=== PATIENT | male | born 1935 | race Hispanic/Latino ===

== ENCOUNTER 2021-01-05 21:51 | Inpatient (IN) | payer OTHER ==
[2021-01-05 23:04] LABS: Absolute Lymphocytes (CBC) 0.3 K/uL (0.7-4.9); Basophils % 0.4 % (0-1.3); Hematocrit 39.9 % (39.6-49.0); Lymphocytes % 3.1 % (15.3-44.8); MPV 8.8 fL (7.6-11.3); RBC Red Blood Cell Count 4.34 M/uL (4.33-5.43)
[2021-01-05 23:06] LABS: Protime INR 1.06
[2021-01-05 23:31] LABS: ALT/SGPT 19 U/L (12-78); AST/SGOT 15 U/L (15-37); Albumin 3.6 g/dL (3.4-5.0); Alkaline Phosphatase 69 U/L (45-117); BUN Blood Urea Nitrogen 21 mg/dL (7-18); Bicarbonate 25 mmol/L (21-32); Bilirubin Direct 0.2 mg/dL (0-0.2); Bilirubin Total 0.6 mg/dL (0.2-1.0); Glucose Level 142 mg/dL (74-106); NT PRO-BNP 907 pg/mL (<450); Protein, Total 6.9 g/dL (6.4-8.2); Sodium Level 143 mmol/L (136-145); Thyroid Stimulating Hormone 0.632 uIU/mL (0.360-3.740); Troponin (Emerg Dept Use Only) < 0.02 ng/mL (0.0-0.045)
[2021-01-06 00:12] LABS: Urine Blood 2+ (Negative); Urine Glucose Negative (Negative); Urine Protein Negative (Negative); Urine Specific Gravity 1.025 (1.005-1.030)
[2021-01-06 00:25] LABS: Barbiturates NEGATIVE (NEGATIVE); Benzodiazepines NEGATIVE (NEGATIVE); Cocaine NEGATIVE (NEGATIVE); METHAMPHETAM NEGATIVE (NEGATIVE); Methadone NEGATIVE (NEGATIVE); Opiates NEGATIVE (NEGATIVE); Phencyclidine NEGATIVE (NEGATIVE); THC Cannibis NEGATIVE (NEGATIVE)
[2021-01-06] MEDS ORDERED: NA CHLORIDE 0.9% 500 ML ONE ×2 (00:52→04:30)
--- NOTE | 2021-01-06 02:43 | EDPHYS ---
Physician Documentation [facility] Name: Rosalinda Mason Age: 85 yrs Sex: Male : 1935 Arrival Date: 01/05/2021 Time: 21:57 Bed 18 Private MD: ED Physician Norberto Rivera HPI: 01/05 22:20 This 85 yrs old Male presents to ER via EMS with complaints of Altered mental mh7 status. 22:20 The patient presents with confusion. Onset: The symptoms/episode began/occurred at an mh7 unknown time. Possible causes: unknown. 22:58 Associated signs and symptoms: Pertinent positives: abdominal pain, confusion, mh7 weakness, Generalized, Pertinent negatives: chest pain, diarrhea, nausea, vomiting. Current symptoms: In the emergency department the patient's symptoms are unchanged from the initial presentation. Patient's baseline: Unknown. According to EMS patient family called stating that he has had some confusion and generalized weakness for unspecified period of time. In the ED patient is awake alert oriented to self and place. He denies any complaints.. Historical: - Allergies: 22:03 Morphine; ld1 - Home Meds: 22:03 Crestor 5 mg Oral tab 1 tab once daily [Active]; ld1 - PMHx: 22:03 Hernia; ld1 - Immunization history:: Adult Immunizations up to date. - Social history:: Smoking status: Patient denies any tobacco usage or history of. ROS: 22:58 Constitutional: Negative for fever, chills, and weight loss, Eyes: Negative for injury, mh7 pain, redness, and discharge, ENT: Negative for injury, pain, and discharge, Neck: Negative for injury, pain, and swelling, Cardiovascular: Negative for chest pain, palpitations, and edema, Respiratory: Negative for shortness of breath, cough, wheezing, and pleuritic chest pain, Back: Negative for injury and pain, : Negative for injury, bleeding, discharge, and swelling, MS/Extremity: Negative for injury and deformity, Skin: Negative for injury, rash, and discoloration, Psych: Negative for depression, anxiety, suicide ideation, homicidal ideation, and hallucinations, Allergy/Immunology: Negative for hives, rash, and allergies, Endocrine: Negative for neck swelling, polydipsia, polyuria, polyphagia, and marked weight changes, Hematologic/Lymphatic: Negative for swollen nodes, abnormal bleeding, and unusual bruising. Exam: 22:58 Constitutional: This is a well developed, well nourished patient who is awake, alert, mh7 and in no acute distress. Head/Face: Normocephalic, atraumatic. Eyes: Pupils equal round and reactive to light, extra-ocular motions intact. Lids and lashes normal. Conjunctiva and sclera are non-icteric and not injected. Cornea within normal limits. Periorbital areas with no swelling, redness, or edema. Neck: Trachea midline, no thyromegaly or masses palpated, and no cervical lymphadenopathy. Supple, full range of motion without nuchal rigidity, or vertebral point tenderness. No Meningismus. Chest/axilla: Normal chest wall appearance and motion. Nontender with no deformity. No lesions are appreciated. 22:58 Respiratory: Lungs have equal breath sounds bilaterally, clear to auscultation and percussion. No rales, rhonchi or wheezes noted. No increased work of breathing, no retractions or nasal flaring. Back: No spinal tenderness. No costovertebral tenderness. Full range of motion. Skin: Warm, dry with normal turgor. Normal color with no rashes, no lesions, and no evidence of cellulitis. MS/ Extremity: Pulses equal, no cyanosis. Neurovascular intact. Full, normal range of motion. 22:58 Cardiovascular: Rate: tachycardic, Rhythm: regular, Pulses: no pulse deficits are appreciated, Heart sounds: normal, normal S1and S2, Edema: is not appreciated, JVD: is not appreciated. 22:58 Abdomen/GI: Inspection: obese scar(s), are noted in the epigastric area and umbilical area, Bowel sounds: normal, in all quadrants, Palpation: mild abdominal tenderness, in all quadrants, mass, is not appreciated, rebound tenderness, is not appreciated, voluntary guarding, is not appreciated, involuntary guarding, is not appreciated, no appreciated organomegaly, Rectal exam: the exam is deferred, because of patient request, Indicators: McBurney's point is not tender, Vines's sign is negative, Rovsing's sign is negative, Obturator sign is negative, Psoas sign is negative, Liver: no appreciated palpable abnormalities. 22:58 Neuro: Orientation: to person, place, Mentation: able to follow commands, Memory: mh7 immediate memory is intact, remote memory is impaired, recent memory is impaired, Cranial nerves: grossly normal, Cerebellar function: is grossly normal, Motor: is normal, Sensation: is normal, Gait: not tested. seizure activity, is not displayed by the patient, Abnormal movements: there are no abnormal movements. Vital Signs: 22:00 BP 122 / 64; Pulse 114; Resp 17; Temp 98.6(O); Pulse Ox 98% on R/A; Weight 95.25 kg; ld1 Height 5 ft. 11 in. (180.34 cm); Pain 0/10; 22:00 BP 128 / 73; Pulse 108; Resp 18; Pulse Ox 98% on R/A; cc4 22:15 BP 126 / 74; Pulse 107; Resp 18; Pulse Ox 99% on R/A; cc4 22:30 BP 132 / 66; Pulse 114; Resp 20; Pulse Ox 100% on R/A; cc4 22:45 BP 123 / 78; Pulse 100; Resp 18; Pulse Ox 98% on R/A; cc4 01/06 01:58 BP 122 / 98; Pulse 108; Resp 18; Pulse Ox 97% on R/A; cc4 02:00 BP 136 / 60; Pulse 83; Resp 18; Pulse Ox 98% on R/A; cc4 02:15 BP 152 / 98; Pulse 99; Resp 18; Pulse Ox 100% on R/A; cc4 02:30 BP 118 / 56; Pulse 106; Resp 20; Pulse Ox 99% on R/A; cc4 02:45 BP 123 / 64; Pulse 112; Resp 18 S; Pulse Ox 99% on R/A; cc4 03:00 BP 113 / 81; Pulse 107; Resp 20; Pulse Ox 99% on R/A; cc4 04:00 BP 114 / 82; Pulse 109; Resp 18; Pulse Ox 99% on R/A; cc4 04:30 BP 124 / 63; Pulse 108; Resp 20; Temp 98; Pulse Ox 98% on R/A; cc4 01/05 22:00 Body Mass Index 29.29 (95.25 kg, 180.34 cm) ld1 MDM: 02:36 Differential Diagnosis: CVA, electrolyte abnormality, alcohol intoxication, mh7 hypoglycemia, intracranial bleed, overdose, pneumonia, seizure, TIA, UTI, volume depletion. Data reviewed: vital signs, nurses notes, EMS record, old medical records, lab test result(s), cardiac enzymes, CBC, drug level(s), acetaminophen, alcohol, salicylate, electrolytes, Flu: negative urinalysis, Covid negative, EKG, radiologic studies, CT scan, plain films. Data interpreted: Pulse oximetry: on room air is 98 %. Interpretation: normal. Counseling: I had a detailed discussion with the patient and/or guardian regarding: the historical points, exam findings, and any diagnostic results supporting the discharge/admit diagnosis, lab results, radiology results, the need for further work-up and treatment in the hospital. Response to treatment: the patient's symptoms have mildly improved after treatment. ED course: No acute distress, vital signs stable, no focal neurological deficits. Responds to most questions appropriately. Discussed with patient's and granddaughter who indicate the patient has had some cognitive issues over the last few years but seemed somewhat more confused yesterday. He has not followed up with his PCP over the last few years so it is unknown if he has any other medical conditions. Plan to admit to his PCP Dr. Jacques for further evaluation and care.. 02:42 Patient medically screened. [facility] 01/05 22:30 Order name: Basic Metabolic Panel [facility] 01/05 22:30 Order name: CBC with Diff [facility] 01/05 22:30 Order name: LFT's [facility] 01/05 22:30 Order name: Magnesium; Complete Time: 23:38 [facility] 01/05 22:30 Order name: NT PRO-BNP; Complete Time: 23:38 [facility] 01/05 22:30 Order name: PT-INR; Complete Time: 23:28 [facility] 01/05 22:30 Order name: Troponin (emerg Dept Use Only); Complete Time: 23:38 [facility] 01/05 22:30 Order name: AMMONIA; Complete Time: 23:28 [facility] 01/05 22:30 Order name: UDS; Complete Time: 00:26 [facility] 01/05 22:30 Order name: ETOH Level; Complete Time: 23:38 [facility] 01/05 22:30 Order name: Acetaminophen; Complete Time: 23:38 [facility] 01/05 22:30 Order name: Salicylate; Complete Time: 23:28 [facility] 01/05 22:30 Order name: TSH; Complete Time: 23:38 [facility] 01/05 22:31 Order name: Basic Metabolic Panel; Complete Time: 23:38 [facility] 01/05 22:31 Order name: CBC with Automated Diff; Complete Time: 23:28 [facility] 01/05 22:31 Order name: Liver (Hepatic) Function; Complete Time: 23:38 [facility] 01/05 22:32 Order name: Influenza Screen (a \T\ B); Complete Time: 00:26 [facility] 01/05 22:33 Order name: Blood Culture Adult (2) [facility] 01/05 22:33 Order name: Lactate; Complete Time: 00:05 [facility] 01/05 23:44 Order name: SARS-COV-2 RT PCR; Complete Time: 00:56 [facility] 01/06 00:11 Order name: Urine Dipstick-Ancillary; Complete Time: 00:26 [facility] 01/06 02:56 Order name: Comprehensive Metabolic Panel [facility] 01/06 02:56 Order name: Troponin I [facility] 01/06 02:56 Order name: CBC with Automated Diff [facility] 01/06 04:35 Order name: CBC with Automated Diff [facility] 01/05 22:30 Order name: XRAY Chest (1 view) [facility] 01/05 22:30 Order name: EKG; Complete Time: 22:31 [facility] 01/05 22:30 Order name: Cardiac monitoring; Complete Time: 00:45 [facility] 01/05 22:30 Order name: EKG - Nurse/Tech; Complete Time: 00:45 [facility] 01/05 22:30 Order name: IV Saline Lock; Complete Time: 00:45 [facility] 01/05 22:30 Order name: Labs collected and sent; Complete Time: 00:45 [facility] 01/05 22:30 Order name: O2 Per Protocol [facility] 01/05 22:30 Order name: O2 Sat Monitoring; Complete Time: 00:46 [facility] 01/05 22:30 Order name: Urine Dipstick-Ancillary (obtain specimen); Complete Time: 00:47 [facility] 01/05 22:32 Order name: CT Head Brain wo Cont [facility] 01/05 23:57 Order name: CT Abd/Pelvis - IV Contrast Only [facility] 01/05 23:57 Order name: CT Chest For PE Angio [facility] 01/06 02:56 Order name: CONS Physician Consult; Complete Time: 04:09 [facility] 01/06 02:56 Order name: 60g Consistent Carbohydrate (ADA 1800/1999); Complete Time: 04:09 [facility] 01/06 04:51 Order name: Comprehensive Metabolic Panel [facility] 01/06 04:51 Order name: Troponin (Emerg Dept Use Only) EDMS Administered Medications: 00:25 Drug: NS 0.9% 500 ml Route: IV; Rate: bolus; Site: right forearm; cc4 05:42 Follow up: IV Status: Completed infusion; IV Intake: 500ml cc4 03:55 Drug: Rocephin (cefTRIAXone) 1 grams Route: IV; Rate: per protocol; Site: right wrist; cc4 04:50 Follow up: Response: No adverse reaction cc4 03:55 Drug: Flagyl (metroNIDAZOLE) 500 mg Volume: 100 ml; Route: IVPB; Rate: 200 ml/hr; cc4 Infused Over: 30 mins; Site: right forearm; 05:40 Follow up: IV Status: Completed infusion; IV Intake: 100ml cc4 03:55 Drug: NS 0.9% 500 ml Route: IV; Rate: bolus; Site: right forearm; cc4 04:50 Follow up: IV Status: Infusion continued; IV Intake: 100ml cc4 03:55 Drug: Aspirin Chewable Tablet 162 mg Route: PO; cc4 04:50 Follow up: Urine output 600 ml; Response: No adverse reaction cc4 Disposition Summary: 01/06/21 02:42 Hospitalization Ordered Hospitalization Status: Inpatient Admission [facility] Provider: Mabel Jacques [facility] Condition: Stable [facility] Problem: an ongoing problem [facility] Symptoms: have improved [facility] Bed/Room Type: Standard [facility] Room Assignment: 203(01/06/21 03:19) cg Diagnosis - Altered Mental Status mh7 - Unspecified atrial fibrillation mh7 - Colitis [facility] Forms: - Medication Reconciliation Form [facility] - SBAR form [facility] Signatures: Dispatcher [employer] Kalie Lott RN RN Norberto Pinto MD MD 7 Radha Lozano RN RN ld1 Ama Lazar RN RN cc4 Corrections: (The following items were deleted from the chart) 01/05 23:44 22:33 CORONAVIRUS+.BRZ ordered. EDMS EDMS 01/06 03:19 02:42 mh7
--- NOTE | 2021-01-06 02:43 | ER ---
Nurse's Notes [facility] Name: Rosalinda Mason Age: 85 yrs Sex: Male : 1935 Arrival Date: 01/05/2021 Time: 21:57 Bed 18 Private MD: Diagnosis: Altered Mental Status;Unspecified atrial fibrillation;Colitis Presentation: 01/05 22:00 Chief complaint: EMS states: toned out for generalized weakness and altered mental ld1 status. Family states lately he has been forgetful. Coronavirus screen: At this time, the client does not indicate any symptoms associated with coronavirus-19. Ebola Screen: No symptoms or risks identified at this time. Initial Sepsis Screen: Does the patient meet any 2 criteria? Altered Mental Status. HR > 90 bpm. Does the patient have a suspected source of infection? No. Patient's initial sepsis screen is negative. Risk Assessment: Do you want to hurt yourself or someone else? Patient reports no desire to harm self or others. Onset of symptoms was January 05, 2021. 22:00 Method Of Arrival: EMS: [facility] ld1 22:00 Acuity: MALIKA 3 ld1 Triage Assessment: 22:04 General: Appears in no apparent distress. comfortable, Behavior is calm, cooperative, ld1 appropriate for age. Pain: Denies pain. EENT: No signs and/or symptoms were reported regarding the EENT system. Neuro: Level of Consciousness is awake, alert, obeys commands, Oriented to person, place. Cardiovascular: Capillary refill < 3 seconds Patient's skin is warm and dry. Rhythm is sinus tachycardia. Respiratory: Airway is patent Respiratory effort is even, unlabored, Respiratory pattern is regular, symmetrical. GI: Abdomen is round distended, Abdominal hernia present to right upper and lower abdomen. Abd is soft Abdomen is tender to palpation X 4 quads. : No signs and/or symptoms were reported regarding the genitourinary system. Derm: No signs and/or symptoms reported regarding the dermatologic system. Musculoskeletal: No signs and/or symptoms reported regarding the musculoskeletal system. Historical: - Allergies: 22:03 Morphine; ld1 - Home Meds: 22:03 Crestor 5 mg Oral tab 1 tab once daily [Active]; ld1 - PMHx: 22:03 Hernia; ld1 - Immunization history:: Adult Immunizations up to date. - Social history:: Smoking status: Patient denies any tobacco usage or history of. Screenin:00 Abuse screen: Denies threats or abuse. Nutritional screening: No deficits noted. cc4 Tuberculosis screening: No symptoms or risk factors identified. Fall Risk Mental Status- Overestimates/Forgets Limitations (15 pts.). Assessment: 22:00 General: Appears in no apparent distress. Appears disoriented.. Behavior is restless, cc4 Disoriented; following commands.. General: voices no complaints.. Neuro: Level of Consciousness is awake, obeys commands, confused, drowsy;. Oriented to person, place, Recorder Hel[employer] are equal bilaterally Moves all extremities. Speech clear. Facial symmetry appears normal, Pupils are PERRLA, Intact. Cardiovascular: Heart tones S1 S2 Capillary refill < 3 seconds Rhythm is atrial fibrillation. Respiratory: No deficits noted. Airway is patent Breath sounds are clear bilaterally. GI: Abdomen is obese, Bowel sounds present X 4 quads. Abd is soft and non tender Whitney Patricio NP in to assess reporting hernia reducible \T\ reports transferring services to Dr. Rivera. Large right inguinal hernia noted of abdomen;. : Urine is Incontinent of foul smelling rust colored urine with wet pants removed with some assistance. EENT: No deficits noted. Eyes clear. Nares are clear Oral mucosa is dry. 22:00 Derm: No deficits noted. Skin is intact. Musculoskeletal: Capillary refill < 3 seconds, cc4 Range of motion: intact in all extremities. 22:02 Reassessment: # 20 g angiocath inserted right forearm \T\ converted to saline lock x 2 cc4 attempts with blood drawn \T\ sent to lab. 22:55 Reassessment: To CT via stretcher. cc4 01/06 01:58 Reassessment: Using urinal to void with assisstance with 200 ml cassia colored urine cc4 noted. 01:58 Reassessment: Patient appears in no apparent distress at this time. Linen wet; awakened cc4 from sleep with linen changed \T\ skin cleaned with bath wipes with brief applied; NAD; essentially no change in condition. 04:00 Reassessment: Awake/alert; remains disoriented; follows commands; voices no complaints; cc4 holding baby ASA in mouth; feed cup of applesauce with no difficulty swallowing \T\ swallowed ASA; IVPB Flagyl infusing with no difficulty right FA with no s/sx's of infiltration; NAD. 04:50 Reassessment: Report telephoned to DARIAN Albarran \T\ trajnsferred to Rm # [phone] via stretcher; cc4 IV NS patent/infusing right FA with no s/sx's of infection/infiltration noted of site; NAD. Vital Signs: 01/05 22:00 BP 122 / 64; Pulse 114; Resp 17; Temp 98.6(O); Pulse Ox 98% on R/A; Weight 95.25 kg; ld1 Height 5 ft. 11 in. (180.34 cm); Pain 0/10; 22:00 BP 128 / 73; Pulse 108; Resp 18; Pulse Ox 98% on R/A; cc4 22:15 BP 126 / 74; Pulse 107; Resp 18; Pulse Ox 99% on R/A; cc4 22:30 BP 132 / 66; Pulse 114; Resp 20; Pulse Ox 100% on R/A; cc4 22:45 BP 123 / 78; Pulse 100; Resp 18; Pulse Ox 98% on R/A; cc4 01/06 01:58 BP 122 / 98; Pulse 108; Resp 18; Pulse Ox 97% on R/A; cc4 02:00 BP 136 / 60; Pulse 83; Resp 18; Pulse Ox 98% on R/A; cc4 02:15 BP 152 / 98; Pulse 99; Resp 18; Pulse Ox 100% on R/A; cc4 02:30 BP 118 / 56; Pulse 106; Resp 20; Pulse Ox 99% on R/A; cc4 02:45 BP 123 / 64; Pulse 112; Resp 18 S; Pulse Ox 99% on R/A; cc4 03:00 BP 113 / 81; Pulse 107; Resp 20; Pulse Ox 99% on R/A; cc4 04:00 BP 114 / 82; Pulse 109; Resp 18; Pulse Ox 99% on R/A; cc4 04:30 BP 124 / 63; Pulse 108; Resp 20; Temp 98; Pulse Ox 98% on R/A; cc4 01/05 22:00 Body Mass Index 29.29 (95.25 kg, 180.34 cm) ld1 ED Course: 01/05 21:57 Patient arrived in ED. ld1 22:00 Patient has correct armband on for positive identification. environmental monitoring technician on. Pulse cc4 ox on. NIBP on. Notified ED physician of other arrival. 22:03 Triage completed. ld1 22:04 Arm band placed on right wrist. ld1 22:20 Norberto Rivera MD is Attending Physician. mh7 22:53 XRAY Chest (1 view) In Process Unspecified. EDMS 23:05 CT Head Brain wo Cont In Process Unspecified. EDMS 23:36 Influenza Screen (a \T\ B) Sent. oe 23:36 Lactate Sent. oe 23:36 Blood Culture Adult (2) Sent. oe 01/06 00:24 Ama Lazar, RN is Primary Nurse. cc4 00:43 CT Chest For PE Angio Sent. cc4 00:43 CT Abd/Pelvis - IV Contrast Only Sent. cc4 00:44 Blood Culture Adult (2) Sent. cc4 00:45 LFT's Sent. cc4 00:45 CBC with Diff Sent. cc4 00:45 Basic Metabolic Panel Sent. cc4 01:03 CT Abd/Pelvis - IV Contrast Only In Process Unspecified. EDMS 01:03 CT Chest For PE Angio In Process Unspecified. EDMS 02:40 Mabel Jacques MD is Hospitalizing Provider. 7 04:00 No provider procedures requiring assistance completed. cc4 04:08 CBC with Automated Diff Sent. cc4 04:08 CBC with Automated Diff Sent. cc4 04:09 Troponin I Sent. cc4 04:09 Troponin I Sent. cc4 04:09 Comprehensive Metabolic Panel Sent. cc4 04:09 Comprehensive Metabolic Panel Sent. cc4 04:09 Troponin I Sent. cc4 04:50 IV is patent, is intact, with fluids infusing freely, cc4 Administered Medications: 00:25 Drug: NS 0.9% 500 ml Route: IV; Rate: bolus; Site: right forearm; cc4 05:42 Follow up: IV Status: Completed infusion; IV Intake: 500ml cc4 03:55 Drug: Rocephin (cefTRIAXone) 1 grams Route: IV; Rate: per protocol; Site: right wrist; cc4 04:50 Follow up: Response: No adverse reaction cc4 03:55 Drug: Flagyl (metroNIDAZOLE) 500 mg Volume: 100 ml; Route: IVPB; Rate: 200 ml/hr; cc4 Infused Over: 30 mins; Site: right forearm; 05:40 Follow up: IV Status: Completed infusion; IV Intake: 100ml cc4 03:55 Drug: NS 0.9% 500 ml Route: IV; Rate: bolus; Site: right forearm; cc4 04:50 Follow up: IV Status: Infusion continued; IV Intake: 100ml cc4 03:55 Drug: Aspirin Chewable Tablet 162 mg Route: PO; cc4 04:50 Follow up: Urine output 600 ml; Response: No adverse reaction cc4 Intake: 04:50 IV: 100ml; Total: 100ml. cc4 05:40 IV: 100ml; Total: 200ml. cc4 05:42 IV: 500ml; Total: 700ml. cc4 Output: 04:50 Urine: 600ml; Total: 600ml. cc4 Outcome: 02:42 Decision to Hospitalize by Provider. [facility] 04:00 Condition: stable cc4 04:50 Admitted to Med/surg accompanied by nurse, via stretcher, room 403, Report called to cc4 Avis De Jesus RN 04:50 Instructed on the need for admit. 05:17 Patient left the ED. cc4 Signatures: Dispatcher [employer] EDMS Ubaldo Muro Maurice, MD MD 7 Radha Lozano, DARIAN RN 1 Ama Lazar RN RN cc4 Corrections: (The following items were deleted from the chart) 01/05 23:44 23:36 CORONAVIRUS+MR.LAB.BRZ drawn and sent. mic ADAMS 01/06 04:17 04:14 BP 128 / 73; Pulse 108bpm; Resp 18bpm; Pulse Ox 98% RA; cc4 cc4
[2021-01-06] MEDS ORDERED: ACETAMINOPHEN 500 MG TAB PO PRN (02:48)
[2021-01-06] MEDS ORDERED: ONDANSETRON 4 MG/2 ML VIAL IV PRN (02:48)
[2021-01-06] MEDS ORDERED: ALBUTEROL 2.5 MG/3 ML NEB SOL NEB PRN (02:48)
[2021-01-06] MEDS ORDERED: ASPIRIN EC 81 MG TAB PO ONE (04:29)
[2021-01-06] MEDS ORDERED: METRONIDAZOLE 500mg IVPB 500 MG/100 ML BAG IV ONE (04:30)
[2021-01-06] MEDS ORDERED: CEFTRIAXONE 1000 MG/VIAL ONE (04:30)
[2021-01-06 04:34] LABS: Absolute Lymphocytes (CBC) 0.7 K/uL (0.7-4.9); Basophils % 0.3 % (0-1.3); Hematocrit 38.6 % (39.6-49.0); Lymphocytes % 4.7 % (15.3-44.8); MPV 8.4 fL (7.6-11.3); RBC Red Blood Cell Count 4.26 M/uL (4.33-5.43)
[2021-01-06 04:51] LABS: ALT/SGPT 16 U/L (12-78); AST/SGOT 15 U/L (15-37); Albumin 3.6 g/dL (3.4-5.0); Alkaline Phosphatase 62 U/L (45-117); BUN Blood Urea Nitrogen 18 mg/dL (7-18); Bicarbonate 23 mmol/L (21-32); Bilirubin Total 1.1 mg/dL (0.2-1.0); Glucose Level 124 mg/dL (74-106); Potassium 3.9 mmol/L (3.5-5.1); Protein, Total 6.8 g/dL (6.4-8.2); Sodium Level 142 mmol/L (136-145); Troponin (Emerg Dept Use Only) < 0.02 ng/mL (0.0-0.045)
[2021-01-06] MEDS: METRONIDAZOLE 500mg IVPB 500 MG/100 ML BAG IV SCH ×3 (05:55→18:34)
[2021-01-06] MEDS: NA CHLORIDE 0.9% 1,000 ML IV SCH ×3 (05:55→23:00)
[2021-01-06] MEDS ORDERED: NA CHLORIDE 0.9% 1,000 ML ONE (06:19)
[2021-01-06] MEDS: CEFTRIAXONE 1 GM/NS 50 ML 1 GM/50 ML BAG IV SCH ×2 (09:56→20:15)
--- NOTE | 2021-01-06 10:42 | RAD REPORT ---
EXAM DESCRIPTION: Mita Single View01/05/2021 10:53 pm CLINICAL HISTORY: Chest pain COMPARISON: 2016 FINDINGS: The lungs appear clear of acute infiltrate. The heart is mildly enlarged IMPRESSION: No acute abnormalities displayed
--- NOTE | 2021-01-06 18:36 | RAD REPORT ---
EXAM DESCRIPTION: CT - Head Brain Wo Cont - 01/06/2021 6:26 am CLINICAL HISTORY: 85 years, Male, MENTAL STATUS CHANGE COMPARISON: None. FINDINGS: Multiple transaxial tomograms of the brain were obtained from the base of the skull to the vertex without contrast. 2-D multiplanar reformats and the coronal and sagittal plane were performed and reviewed. This exam was performed according to our departmental dose-optimization protocol, which includes auto mated exposure control, adjustment of the mA and/or kV according to patient size and/or use of iterat delores reconstruction technique. Brain parenchyma demonstrate prominence of the sulci and gyri are corresponding to brain atrophy. The re is minimal periventricular white matter changes of microvascular ischemia. There is no midline neil ft and/or mass effect. There is no evidence for acute intracranial hemorrhage. Minimal bilateral basa l ganglia calcifications. Vascular calcifications at the cavernous sinus Lateral ventricles and ciste rns displace normal appearance. No intra or extra axial fluid collections were seen. The calvarium is intact with no evidence for fracture. The visualized portions of the paranasal sinuses and orbits demonstrate to be clear. IMPRESSION: BRAIN ATROPHY WITH PERIVENTRICULAR MATTER CHANGES OF MICROVASCULAR ISCHEMIA. NO ACUTE INTRACRANIAL HEMORRHAGE. Electronically signed by: Odilon Mondragon MD 01/05/2021 11:41 PM CDT Due to temporary technical issues with the PACS/Fluency reporting system, reports are being signed by the in house radiologists without review as a courtesy to insure prompt reporting. The interpreting radiologist is fully responsible for the content of the report.
--- NOTE | 2021-01-06 18:58 | RAD REPORT ---
EXAM DESCRIPTION: CT - Abdomen Pelvis W Contrast - 01/06/2021 6:25 am COMPARISON: None. CLINICAL HISTORY: [facility] MAIN palpitations TECHNIQUE: CT images through the chest with IV contrast using the pulmonary embolus protocol. Multip lanar reformats. MIPS reformats are provided. Automated exposure control was utilized on this exami [facility] as a dose lowering technique. FINDINGS: Pulmonary arteries and vascular: Diagnostic quality bolus. No filling defects. Mild athero sclerosis. Heart and mediastinum: Heart size is normal. No lymphadenopathy. Thyroid gland: Visualized portions are normal. Lungs: Clear. Airways: No filling defects. No bronchiectasis. Pleura: No pneumothorax. No significant pleural effusion. Musculoskeletal and soft tissues: Within normal limits for age. EXAM DESCRIPTION: CT Abdomen and Pelvis COMPARISON: None. CLINICAL HISTORY: [facility] MAIN ABD PAIN TECHNIQUE: CT of the abdomen and pelvis was acquired with IV contrast material. Coronal and sagitt al reconstructions were obtained. Automated exposure control was utilized on this examination as a dose lowering technique. FINDINGS: Liver: Normal. Gallbladder and biliary: Normal gallbladder. Unremarkable biliary tree. Pancreas: Normal. Spleen: Normal. Adrenal glands: Normal adrenal glands. Kidneys: Normal kidneys Stomach and Small Bowel: Normal stomach. There are multiple loops of small bowel located within multi ple ventral hernias. Urinary bladder: Normal. Prostate/Male Urogenital: Normal. Colon and Appendix: Severe sigmoid diverticulosis. A small portion of colon is located within a small left ventral hernia. There is severe wall thickening of the transverse colon with adjacent fat stran ding. No evidence of appendicitis. Retroperitoneum and lymph nodes: Normal. Vascular: Mild atherosclerosis. Peritoneal cavity: No ascites or free air. Musculoskeletal and soft tissues: Multiple bowel containing ventral hernias are present. A collapsed left ventral hernia mesh is present. The right ventral hernia sac measures 19.6 cm. No aggressive bon e lesions. No compression fracture. IMPRESSION: No evidence of pulmonary embolus or other acute chest process. ABDOMEN/PELVIS IMPRESSION: 1. Severe focal infectious or inflammatory colitis of the transverse colon. Neoplasm is not excluded. 2. Severe sigmoid diverticulosis. 3. Multiple large ventral bowel containing hernias. Electronically signed by: Terrence Bueno MD 01/06/2021 1:49 AM CDT Due to temporary technical issues with the PACS/Fluency reporting system, reports are being signed by the in house radiologists without review as a courtesy to insure prompt reporting. The interpreting radiologist is fully responsible for the content of the report.
--- NOTE | 2021-01-06 19:00 | RAD REPORT ---
EXAM DESCRIPTION: CT - Chest For Pe Angio - 01/06/2021 6:24 am COMPARISON: None. CLINICAL HISTORY: [facility] MAIN palpitations TECHNIQUE: CT images through the chest with IV contrast using the pulmonary embolus protocol. Multip lanar reformats. MIPS reformats are provided. Automated exposure control was utilized on this exami [facility] as a dose lowering technique. FINDINGS: Pulmonary arteries and vascular: Diagnostic quality bolus. No filling defects. Mild athero sclerosis. Heart and mediastinum: Heart size is normal. No lymphadenopathy. Thyroid gland: Visualized portions are normal. Lungs: Clear. Airways: No filling defects. No bronchiectasis. Pleura: No pneumothorax. No significant pleural effusion. Musculoskeletal and soft tissues: Within normal limits for age. IMPRESSION: CT Abdomen and Pelvis COMPARISON: None. CLINICAL HISTORY: [facility] MAIN ABD PAIN TECHNIQUE: CT of the abdomen and pelvis was acquired with IV contrast material. Coronal and sagitt al reconstructions were obtained. Automated exposure control was utilized on this examination as a dose lowering technique. FINDINGS: Liver: Normal. Gallbladder and biliary: Normal gallbladder. Unremarkable biliary tree. Pancreas: Normal. Spleen: Normal. Adrenal glands: Normal adrenal glands. Kidneys: Normal kidneys Stomach and Small Bowel: Normal stomach. There are multiple loops of small bowel located within multi ple ventral hernias. Urinary bladder: Normal. Prostate/Male Urogenital: Normal. Colon and Appendix: Severe sigmoid diverticulosis. A small portion of colon is located within a small left ventral hernia. There is severe wall thickening of the transverse colon with adjacent fat stran ding. No evidence of appendicitis. Retroperitoneum and lymph nodes: Normal. Vascular: Mild atherosclerosis. Peritoneal cavity: No ascites or free air. Musculoskeletal and soft tissues: Multiple bowel containing ventral hernias are present. A collapsed left ventral hernia mesh is present. The right ventral hernia sac measures 19.6 cm. No aggressive bon e lesions. No compression fracture. IMPRESSION: CHEST IMPRESSION: No evidence of pulmonary embolus or other acute chest process. ABDOMEN/PELVIS IMPRESSION: 1. Severe focal infectious or inflammatory colitis of the transverse colon. Neoplasm is not excluded. 2. Severe sigmoid diverticulosis. 3. Multiple large ventral bowel containing hernias. Electronically signed by: Terrence Bueno MD 01/06/2021 1:49 AM CDT Due to temporary technical issues with the PACS/Fluency reporting system, reports are being signed by the in house radiologists without review as a courtesy to insure prompt reporting. The interpreting radiologist is fully responsible for the content of the report.
[2021-01-06] MEDS: ENOXAPARIN 40 MG/0.4 ML SQ SCH (20:15)
[2021-01-07] MEDS: METRONIDAZOLE 500mg IVPB 500 MG/100 ML BAG IV SCH ×5 (00:12→23:58)
[2021-01-07 06:13] LABS: Basophils % 0.4 % (0-1.3); Hematocrit 33.8 % (39.6-49.0); Lymphocytes % 9.6 % (15.3-44.8); MPV 8.2 fL (7.6-11.3); RBC Red Blood Cell Count 3.69 M/uL (4.33-5.43)
[2021-01-07 06:28] LABS: ALT/SGPT 13 U/L (12-78); AST/SGOT 28 U/L (15-37); Albumin 2.7 g/dL (3.4-5.0); Alkaline Phosphatase 50 U/L (45-117); BUN Blood Urea Nitrogen 14 mg/dL (7-18); Bicarbonate 25 mmol/L (21-32); Bilirubin Total 0.9 mg/dL (0.2-1.0); Glucose Level 105 mg/dL (74-106); Potassium 3.8 mmol/L (3.5-5.1); Protein, Total 5.7 g/dL (6.4-8.2); Sodium Level 144 mmol/L (136-145)
[2021-01-07] MEDS: NA CHLORIDE 0.9% 1,000 ML IV SCH ×3 (09:00→19:00)
[2021-01-07] MEDS: CEFTRIAXONE 1 GM/NS 50 ML 1 GM/50 ML BAG IV SCH ×2 (09:38→20:15)
[2021-01-07] MEDS: ENOXAPARIN 40 MG/0.4 ML SQ SCH ×2 (09:38→20:14)
--- NOTE | 2021-01-07 12:49 | CON ---
Date of Consultation: 01/06/2021 Reason For Consultation: Atrial fibrillation. History Of Present Illness: The patient is an 85-year-old. He is actually very physically active. 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. He has had a history of known chronic atrial fibrill ation, came in with altered mental status that has since improved. He is pretty much back to normal. He denied any chest pain. Denied any nausea, vomiting, diaphoresis, PND, orthopnea, pedal edema, p alpitation, or syncope. Past Medical History: Includes atrial fibrillation, chronic dyslipidemia for which he takes Crestor. Allergies: TO MORPHINE. Review of Systems: Negative. Social History: Negative. Family History: Negative. Physical Examination: Vital Signs: He was in atrial fibrillation initially at a rate of 100, but then he converted to sinu s rhythm. His blood pressure was normal. HEENT: Negative. Neck: Supple. No bruit. Chest: Clear to auscultation and percussion. Cardiac: Revealed a regular rhythm and rate. No murmurs, gallops, or rubs. Abdomen: Benign. Extremities: Revealed no clubbing, cyanosis, or edema. Diagnostic Data: Initial EKG showed atrial fibrillation, rate of 98. His chest x-ray was normal. H ead CT showed brain atrophy with microvascular ischemia. Abdominal and pelvic CT revealed severe foc al colitis and diverticulosis. Chest and thoracic CTA did not show any pulmonary embolus. Impression And Plan: 1.Dyslipidemia, on statin. 2.Colitis, being treated with antibiotics. 3.Atrial fibrillation. This seems to be paroxysmal. I think the patient needs to be on Lovenox whi le he is in the hospital. If he stays here till Friday, an echocardiogram is reasonable. I do not t hink that the atrial fibrillation has had anything to do with his altered mental status. Anticoagula tion should be considered long-term. I will discuss the case further with Dr. Jacques. CADEN/SHALOM Voice ID: [id number] Report ID: [id number]
--- NOTE | 2021-01-07 21:04 | HP ---
Date of Admission: 01/06/2021 History Of Present Illness: An 85-year-old male whom I have not seen in my office. He stopped follo wing up for more than 3 years now. However, he came to the emergency room complaining of that his wi fe has noticed that he is confused a little bit. His workup in the emergency room showed that the pa kev has possible infectious colitis and he was admitted for that with a mental status change. The patient at the time of interviewing him, he was alert with me and oriented when he was in the [facility]. He denies any abdominal pain. No constipation. No diarrhea and no chest pain. No increased ndaiya rtness of breath and he voiced no other complaints. Review of Systems: Gastrointestinal: As above. No complaint. Cardiovascular: No complaint. Genitourinary: No complaint Cardiovascular: Off and on palpitation. He said sometimes his heart is racing. Neurological: The patient at the time of interview, had no complaints to me. Skeletomuscular: Osteoarthritic pains off and on. Otherwise no complaint. Past Medical History: The patient stopped even following up with any other primary care physician. The history from him as far as his chronic medical problems, he has a ventral abdominal hernia. Ther e is a question about him knowing that he had at some point, atrial fibrillation and has high cholest elis. Medications: Include Crestor 5 mg daily. No other medications. Allergies: MORPHINE. Social History: No smoking, alcohol, or drug abuse history. Family History: Noncontributing. The patient's chest x-ray, no acute pathology. Head CT, microvascular ischemic changes, chronic. No acute pathology. Abdominal and pelvic and chest CT showed multiple ventral abdominal hernias and a possible infection was colitis versus inflammatory colitis. CBC, white cell count 15.4 dropped to 10 .8, hemoglobin 11.5, hematocrit 33.8, and platelets 123. Chemistry, chloride 114. The rest of chem- 7 noted. Albumin 2.7. TSH at 0.632. Microbiology; influenza A and B negative. Blood cultures, no growth to date. No coronavirus. Assessment/plan: The patient was admitted with an infectious colitis that may have caused his mental status change, which has improved since admission. The patient has been put on Flagyl and ceftriaxo ne, IV antibiotics. Put him on Lovenox for prophylaxis. Dr. Johnston, for his atrial fibrillation, h as been consulted. Look orders for details. MFS/MODL Voice ID: [id number]
[2021-01-08 04:31] LABS: Basophils % 0.5 % (0-1.3); Hematocrit 33.7 % (39.6-49.0); Lymphocytes % 11.7 % (15.3-44.8); MPV 8.1 fL (7.6-11.3)
[2021-01-08 04:47] LABS: BUN Blood Urea Nitrogen 13 mg/dL (7-18); Bicarbonate 27 mmol/L (21-32); Glucose Level 109 mg/dL (74-106); Potassium 4.3 mmol/L (3.5-5.1); Sodium Level 143 mmol/L (136-145)
[2021-01-08 05:50] VITALS: BMI 30.3
[2021-01-08] MEDS: METRONIDAZOLE 500mg IVPB 500 MG/100 ML BAG IV SCH (05:58)
[2021-01-08] MEDS: CEFTRIAXONE 1 GM/NS 50 ML 1 GM/50 ML BAG IV SCH ×2 (09:22→21:18)
[2021-01-08] MEDS: ENOXAPARIN 40 MG/0.4 ML SQ SCH ×2 (09:22→21:19)
[2021-01-08] MEDS: metroNIDAZOLE 500 MG TABLET PO SCH ×2 (13:32→21:18)
--- NOTE | 2021-01-08 14:49 | ECHO ---
HEIGHT: 5 ft 11 in WEIGHT: 217 lb 9.6 oz DATE OF STUDY: 01/08/[address]: Stefan Johnston MD 2-DIMENSIONAL: YES M.MODE: YES DOPPLER: YES COLOR FLOW: YES TDS: YES PORTABLE: NO DEFINITY: NO BUBBLE STUDY: NO DIAGNOSIS: ATRIAL FIBRILLATION CARDIAC HISTORY: CATHERIZATION: SURGERY: PROSTHETIC VALVE: PACEMAKER: MEASUREMENTS (cm) DIASTOLIC (NORMALS) SYSTOLIC (NORMALS) IVSd 1.1 (0.6-1.2) LA Diam 4.0 (1.9-4.0) LVEF 68% LVIDd 4.2 (3.5-5.7) LVIDs 2.6 (2.0-3.5) %FS 37% LVPWd 1.1 (0.6-1.2) Ao Diam 3.2 (2.0-3.7) 2 DIMENSIONAL ASSESSMENT: RIGHT ATRIUM: NORMAL LEFT ATRIUM: ENLARGED RIGHT VENTRICLE: NORMAL LEFT VENTRICLE: NORMAL TRICUSPID VALVE: MITRAL VALVE: PULMONIC VALVE: NORMAL AORTIC VALVE: NORMAL PERICARDIAL EFFUSION: NONE AORTIC ROOT: NORMAL LEFT VENTRICULAR WALL MOTION: NORMAL DOPPLER/COLOR FLOW: SEE BELOW. COMMENTS: NORMAL LEFT VENTRICULAR EJECTION FRACTION 60-65%. NORMAL WALL MOTION. MILD MITRAL AND TRICUSPID REGURGITATION. TECHNOLOGIST: Jean Pierre HSU
--- NOTE | 2021-01-08 19:01 | PN ---
Subjective: The patient is doing well. No abdominal pain. No fever, no chills, no palpitation. Objective: Vital Signs: Blood pressure 126/73, pulse 90, temperature 96.9. Heart: Regular rate and rhythm. Chest: Clear to auscultation. Abdomen: Soft, benign. Bowel sounds are active. Ventral abdominal hernias are evident. No tenderne ss. No rebound. Neurological: Alert, oriented x4. Grossly intact. Extremities: No edema. No cyanosis. Peripheral pulses are felt. Diagnostic Data: White cell count 8.6, hemoglobin 11.8, hematocrit 33.7, and platelets 134, chloride 112, glucose 109. The rest of his basic metabolic panel noted. Blood sugar fingersticks noted. Bl ood cultures, no growth to date. Assessment And Plan: 1.Colitis, is under control. I think the patient could be switched to oral antibiotics on discharge . 2.Atrial fibrillation, controlled rate. An echo on the patient's heart is pending. We will check t hat and if everything is manageable as an outpatient, we will go ahead and discharge the patient. We are going to discharge him tomorrow morning and we will put him on Eliquis for that. The patient to continue to be on Lovenox 40 mg b.i.d. The patient with a history of hyperlipidemia. I did not see that he is taking any medicines. We are going to go ahead and check his lipid profile, so we can pu t him on the appropriate medication on discharge. Look orders for details. MFS/MODL Voice ID: [id number] Report ID: [id number]
[2021-01-09] MEDS: CEFTRIAXONE 1 GM/NS 50 ML 1 GM/50 ML BAG IV SCH (08:27)
[2021-01-09] MEDS: ENOXAPARIN 40 MG/0.4 ML SQ SCH (08:27)
[2021-01-09] MEDS: metroNIDAZOLE 500 MG TABLET PO SCH ×2 (08:27→13:13)
[2021-01-09 10:18] VITALS: O2SAT 98
[2021-01-09 12:04] VITALS: BP 134/79; TEMP 96.6
--- NOTE | 2021-01-10 09:30 | DS ---
Date of Discharge: 01/09/2021 History Of Present Illness: An 85-year-old male, who was admitted to the hospital because of colitis and atrial fibrillation. Past Medical History: As per his admit note. Social History: As per his admit note. Family History: As per his admit note. Medications: As per his admit note. Allergies: PER HIS ADMIT NOTE. Physical Examination: As per his admit note. Diagnostic Data: As per his admit note. Hospital Course: The patient was admitted to the hospital. He was put for his colitis on IV Rocephi n and IV Flagyl. We also had Cardiology see him for his atrial fibrillation and Cardiology thought t hat his rate is controlled and his AFib is paroxysmal. They recommended keeping him on anticoagulati on and cardiac echo was ordered and showed normal left ventricular ejection fraction and wall motion. At this time, the patient is stable enough. It was at the beginning thought his mental status to b e have been altered, but with control of his infection, he became alert, oriented x4, and his mental status was well within normal for his age. I think the patient is stable enough to be discharged if it is okay with Cardiology and I will discharge him on oral Flagyl, Cipro, and Eliquis and the patient will follow up with me. Look d ischarge orders for details. MFS/MODL Voice ID: [id number] Report ID: [id number]
== END 2021-01-09 14:00 | disposition home or self-care (01) | DRG 392 ==
LOC: ER 21:51 → ERHOLD 01-06 02:56 → 2ND 01-06 04:40
PROVIDERS: ADMIT Internal Medicine; ATTEND Internal Medicine
DX: A09 Infectious gastroenteritis and colitis, unspecified (principal); I48.0 Paroxysmal atrial fibrillation; E78.5 Hyperlipidemia, unspecified; M19.90 Unspecified osteoarthritis, unspecified site; Z88.5 Allergy status to narcotic agent; Z20.822 Contact with and (suspected) exposure to COVID-19
CPT/HCPCS: 36415; 70450; 71045; 71275; 74177; 80048; 80053; 80061; 80076; 80307; 80320; 80329; 81003; 82140; 82947; 83605; 83735; 83880; 84443; 84484; 85025; 85610; 87040; 87804; 93005; 93306; 94760; 96361; 96365; 96366; 96375; 99285; J0696; J1650; J7030; J7040; Q9967; U0003